=== PATIENT | male | born 1965 | race Hispanic/Latino ===

== ENCOUNTER → 2022-04-29 | Outpatient (CLI) | payer MEDICARE ==
[~2022-04-29] MED LIST: CARVEDILOL12.5 MG PO; LISINOPRIL10 MG PO; NIFEDIPINE ER30 M1 PO
== END | disposition home or self-care (01) ==
LOC: RAD 07:26 → OR 07:26 → EDSTATUS 09:30
PROVIDERS: ATTEND Internal Medicine Gastroenterology
DX: Z12.11 Encounter for screening for malignant neoplasm of colon (principal); Z01.810 Encounter for preprocedural cardiovascular examination; Z53.8 Procedure and treatment not carried out for other reasons
CPT/HCPCS: 93005